=== PATIENT | male | born 1975 | race Caucasian/White ===

== ENCOUNTER 2017-06-19 19:35 | Emergency (ER) | payer OTHER ==
[~2017-06-19] VITALS: Ht 172.7 cm; Wt 82.6 kg
[~2017-06-19 19:35] MED LIST: ASPIR-LOW81 MG PO; CIPRO500 MG PO; MOTRIN600 MG PO; NOHOMEMEDS; NORCO 5/3251 TABLET PO; PERCOCET 5/31 TABLET PO; RANITIDINE HCL150 MG PO
[2017-06-19 20:23] LABS: HEMATOCRIT 48.6 % (38.0-50.0); MCH 30.8 PG (29.0-34.0); MCV 85.6 FL (86-99); MEAN PLAT.VOLUME 9.8 uM^3 (9.0-12.4); PLATELET COUNT 296 K/uL (156-360); RBC DIS.WIDTH-CV 12.9 % (11.8-14.6); RBC DIS.WIDTH-SD 40.1 % (39-53); RED BLOOD COUNT 5.68 M/uL (4.00-5.50); WHITE BLOOD COUNT 7.8 K/uL (4.1-10.2)
[2017-06-19 20:32] LABS: CHLORIDE 104 mEq/L (99-109); POTASSIUM 4.4 mEq/L (3.7-5.4); SODIUM 140 mEq/L (136-147)
[2017-06-19 20:34] LABS: GLUCOSE 130 mg/dL (70-99)
[2017-06-19 20:35] LABS: ANION GAP 14 MEQ/L (2-14)
[2017-06-19 20:38] LABS: GFR ESTIMATE (CALCULATED) > 59 mL/min/; UREA NITROGEN (BUN) 14 mg/dL (9-23)
[2017-06-19 20:45] LABS: TROP-I INTERPRETATION NEGATIVE; TROPONIN-I < 0.01 ng/mL (0.0-0.30)
[2017-06-19 22:51] LABS: LIPASE 17 U/L (1.0-51.0)
[2017-06-19 22:58] LABS: D-DIMER ELISA < 150.00 ng/mLDDU (<230)
[2017-06-19 23:43] LABS: TROP-I INTERPRETATION NEGATIVE; TROPONIN-I < 0.01 ng/mL (0.0-0.30)
[2017-06-20] MEDS ORDERED: LOPRESSOR25 MG PO (00:39)
[2017-06-20 01:25] VITALS: BP 123/87
== END 2017-06-20 01:25 | disposition home or self-care (01) ==
LOC: EME 19:35
PROVIDERS: Emergency Medicine
DX: R07.9 Chest pain, unspecified (principal); I10 Essential (primary) hypertension; R11.2 Nausea with vomiting, unspecified; K21.9 Gastro-esophageal reflux disease without esophagitis; F17.200 Nicotine dependence, unspecified, uncomplicated
CPT/HCPCS: 71020; 71275; 74177; 80048; 83690; 84484; 85027; 85379; 93005; 99281; 99284; J7030